=== PATIENT | female | born 1970 | race Caucasian/White ===

== ENCOUNTER → 2020-06-19 | Outpatient (CLI) | payer OTHER ==
--- NOTE | 2020-06-19 13:54 | KCIC ---
EXAM: XR KNEE _3 VIEWS_LT 06/19/2020 12:28 PM CLINICAL INDICATION: Left knee pain 4 days posteriorly COMPARISON: None TECHNIQUE: 3 views of the left knee FINDINGS: No acute fracture. Alignment is normal. Joint spaces are maintained. No joint effusion or soft tissue abnormality. IMPRESSION: Normal radiograph of the left knee. Electronically signed by: Cynthia Preciado MD (06/19/2020 1:52 PM) [id number]
== END ==
LOC: KCIC 12:23
PROVIDERS: ATTEND Family Medicine
DX: M25.562 Pain in left knee (principal)
CPT/HCPCS: 73562